=== PATIENT | female | born 1945 | race Caucasian/White ===

== ENCOUNTER 2019-06-16 07:38 | Emergency (ER) | payer MEDICARE ==
[~2019-06-16] VITALS: Ht 160 cm; Wt 96.8 kg
[~2019-06-16 07:38] MED LIST: ASPI-1071 PO; CARV-50 PO; LEVO25TA2 PO; LEVO25TA7 PO; LISI10TA4 PO; NITR0.4T51 SL; ORPH100T2 PO; OXYC-145 PO; SIMV-42 PO
[2019-06-16 07:45] VITALS: BP 156/60
[2019-06-16] MEDS ORDERED: BENZ-16 PO (08:13)
[2019-06-16] MEDS ORDERED: AZIT250T PO (08:13)
== END 2019-06-16 08:54 | disposition home or self-care (01) ==
LOC: ER 07:39
DX: J06.9 Acute upper respiratory infection, unspecified (principal); Z79.82 Long term (current) use of aspirin
CPT/HCPCS: 99283

== ENCOUNTER 2020-09-22 13:28 | Outpatient (CLI) | payer MEDICARE ==
[~2020-09-22 13:28] MED LIST changes: +AZIT250T PO; +LISI10TA27 PO; -LISI10TA4 PO
== END 2020-09-22 23:59 | disposition home or self-care (01) ==
LOC: VAS 13:28
PROVIDERS: ATTEND Family Medicine
DX: I74.3 Embolism and thrombosis of arteries of the lower extremities (principal)
CPT/HCPCS: 93922; 93926

== ENCOUNTER 2023-03-15 06:06 | Day surgery (SDC) | payer MEDICARE, OTHER ==
[2023-03-14 12:07] LABS: BASOPHILS % (AUTO) 0.2 % (0-1); EOSINOPHILS # (AUTO) 0.2 X10'3 (0-0.9); EOSINOPHILS % (AUTO) 3.5 % (0-6); HEMATOCRIT 34.9 % (35.0-45.0); HEMOGLOBIN 11.5 g/dl (12.0-16.0); LYMPHOCYTES # (AUTO) 2.5 X10'3 (1.1-4.8); LYMPHOCYTES % (AUTO) 34.5 % (21-51); MEAN CORPUSCULAR HEMOGLOBIN 27.9 PG (27.0-31.0); MEAN CORPUSCULAR HGB CONC 32.8 g/dL (33.0-36.5); MEAN CORPUSCULAR VOLUME 85.1 FL (78-98); MEAN PLATELET VOLUME 7.4 FL (7.4-10.4); MONOCYTES # (AUTO) 0.5 X10'3 (0-0.9); MONOCYTES % (AUTO) 6.9 % (2-12); NEUTROPHILS # (AUTO) 3.9 X10'3 (1.8-7.7); NEUTROPHILS % (AUTO) 54.9 % (42-75); PLATELET COUNT 243 X10'3 (140-440); RED CELL DISTRIBUTION WIDTH 14.1 % (11.5-14.5); WHITE BLOOD COUNT 7.1 X10'3 (4.5-11.0)
[2023-03-14 12:15] LABS: ALBUMIN 3.6 G/DL (3.4-5.0); ANION GAP 10 (8-16); BLOOD UREA NITROGEN 25 MG/DL (7-18); BUN/CREATININE RATIO 17.4 (10.0-20.0); CALCIUM 9.7 MG/DL (8.5-10.1); CHLORIDE 106 MMOL/L (99-107); CREATININE 1.44 MG/DL (0.40-0.90); GLUCOSE 139 MG/DL (70-104); POTASSIUM 4.2 MMOL/L (3.5-5.1); SODIUM 140 MMOL/L (135-145); TOTAL CARBON DIOXIDE 23.8 MMOL/L (24-32); eGFR 35 ML/MIN
[2023-03-14 12:53] LABS: APTT 32 SECONDS (22-32); PROTHROMBIN TIME 10.6 SECONDS (9.0-12.0)
[~2023-03-15] VITALS: Ht 160 cm; Wt 97.2 kg
[2023-03-15] VITALS (13 sets, daily range): BP systolic 114–138; BP diastolic 48–59; PULSE 59–77; RESP 16–20; TEMP 98.3; O2SAT 93–97
[~2023-03-15 06:06] MED LIST changes: -ORPH100T2 PO; +ORPH100T4 PO
[2023-03-15] MEDS ORDERED: diphenhydrAMINE 25mg capsule PO PRN (06:25)
[2023-03-15] MEDS ORDERED: LORazepam 0.5 MG tablet PO PRN (06:25)
[2023-03-15] MEDS ORDERED: normal saline 1,000 ML IV SCH (06:25)
[2023-03-15] MEDS ORDERED: LOSA1TAB41 (06:37)
[2023-03-15] MEDS ORDERED: CARV25TA2 (06:37)
[2023-03-15] MEDS ORDERED: LEVO100T (06:39)
[2023-03-15] MEDS ORDERED: METF-900 (06:39)
[2023-03-15] MEDS ORDERED: PANT40TA54 (06:39)
[2023-03-15] MEDS ORDERED: MULT-1133 (06:40)
[2023-03-15] MEDS ORDERED: verapamil 2.5 mg/ml inj IV ONE (07:51)
[2023-03-15] MEDS ORDERED: midazolam 1 mg/ML 2ml injection ONE (07:51)
[2023-03-15] MEDS ORDERED: fentaNYL/PF 50MCG/1 ML 2ML syringe ONE (07:51)
[2023-03-15] MEDS ORDERED: LIDOcaine 1% (10mg/ml) 2ml vial ONE (07:51)
[2023-03-15] MEDS ORDERED: heparin 1,000unit/ml 10ml vial 10 ML ONE (07:52)
[2023-03-15] MEDS ORDERED: iohexol 350MG/ML 100ml bottle IV ONE (07:52)
[2023-03-15] MEDS ORDERED: iohexol 350 MG/ML 50ML vial IV ONE ×3 (07:52→08:55)
[2023-03-15] MEDS ORDERED: nitroGLYCERIN 500mcg/5mL D5W 5 ML IV ONE (08:06)
[2023-03-15] MEDS ORDERED: normal saline 1000ml 1,000 ML IV SCH (10:10)
== END 2023-03-15 15:00 | disposition home or self-care (01) ==
LOC: SSTAY O 06:06
PROVIDERS: ATTEND Internal Medicine Cardiovascular Disease
DX: I25.119 Atherosclerotic heart disease of native coronary artery with unspecified angina pectoris (principal); I48.0 Paroxysmal atrial fibrillation; I10 Essential (primary) hypertension; E78.5 Hyperlipidemia, unspecified; E03.9 Hypothyroidism, unspecified; I27.20 Pulmonary hypertension, unspecified; E11.9 Type 2 diabetes mellitus without complications; I51.81 Takotsubo syndrome; E66.3 Overweight; Z68.37 Body mass index [BMI] 37.0-37.9, adult; G47.30 Sleep apnea, unspecified; I34.0 Nonrheumatic mitral (valve) insufficiency; I27.29 Other secondary pulmonary hypertension; Z79.899 Other long term (current) drug therapy; Z79.82 Long term (current) use of aspirin; Z79.84 Long term (current) use of oral hypoglycemic drugs; Z96.651 Presence of right artificial knee joint; Z98.890 Other specified postprocedural states; Z82.3 Family history of stroke; Z80.1 Family history of malignant neoplasm of trachea, bronchus and lung; Z80.8 Family history of malignant neoplasm of other organs or systems
CPT/HCPCS: 36415; 76937; 80048; 85025; 85610; 85730; 93005; 93458; 99152; 99153; J1644; J2250; J3010; J3490; J7030; Q0163; Q9967; A6258; A6402; C1725; C1894